=== PATIENT | male | born 1935 | race Caucasian/White ===

== ENCOUNTER 2019-01-27 17:03 | Emergency (ER) | payer MEDICARE, BC, MEDICAID ==
[2019-01-27 17:51] VITALS: BP 134/66; PULSE 76
[2019-01-27] MEDS ORDERED: Sodium Chloride 0.9% 10 ML Syringe FLUSH PRN (18:11)
--- NOTE | 2019-01-27 18:28 | EDM.PDOC ---
ED HPI GENERAL MEDICAL PROBLEM - General Chief Complaint: Lower Extremity Injury/Pain Time Seen by Provider: 01/27/19 17:05 Source of Information: Reports: Patient History Limitations: Reports: No Limitations - History of Present Illness INITIAL COMMENTS - FREE TEXT/NARRATIVE: Pt. fell yesterday at [facility]. Pt. has a history of severe Parkinson's disease and is in a wheelchair all the time according to caregivers at [facility]. Pt. has a history of previous L hip fracture post fall in 2012. Pt. is non-verbal for the most part, able to indicate to the affirmative that his R hip is causing him discomfort. Pt. indicated to the negative that he had no other symptoms. Pt. was initially seen at [facility] and the plain film radiographs did not show any obvious fracture, so the patient was sent to the ER for further eval and pelvic CT. There was no obvious head or neck trauma. No shortening or rotation noted to R lower extremity. Onset Date: 01/27/19 Location: Reports: Lower Extremity, Right - Related Data Allergies Allergy/AdvReac Type Severity Reaction Status Date / Time No Known Drug Allergies Allergy Other Verified 01/27/19 17:39 Home Meds: Home Meds Acetaminophen 1 tab PO Q4HR PRN 05/05/14 [History] Carbidopa/Levodopa [Sinemet Cr 25-100 Tablet] 1 tab PO ASDIRECTED 05/05/14 [ History] Docusate Sodium [Colace] 100 mg PO BID 05/05/14 [History] Donepezil HCl [Aricept] 20 mg PO DAILY 05/05/14 [History] Entacapone [Comtan] 200 mg PO ASDIRECTED 05/05/14 [History] Multivitamin [Multivitamins] 1 tab PO DAILY 05/05/14 [History] Polyethylene Glycol 3350 [MiraLAX] 17 gm PO BEDTIME 05/05/14 [History] Venlafaxine [Effexor XR] 112.5 mg PO DAILY 05/05/14 [History] Cholecalciferol (Vitamin D3) [Vitamin D3] 1,000 unit PO DAILY 05/30/16 [History] Gabapentin [Neurontin] 300 mg PO BEDTIME 05/30/16 [History] Lisinopril [Prinivil] 5 mg PO DAILY 05/30/16 [History] Memantine HCl [Namenda] 10 mg PO BID 05/30/16 [History] Insulin Glargine,Hum.Rec.Anlog [Basaglar Kwikpen U-100] 10 unit SQ DAILY [History] Ranitidine [Zantac] 150 mg PO DAILY 01/27/19 [History] Past Medical History Cardiovascular History: Reports: Hypertension Gastrointestinal History: Reports: PUD Neurological History: Reports: Parkinson's Other Neuro History: lewy body dementia Psychiatric History: Reports: Anxiety, Dementia, Depression Endocrine/Metabolic History: Reports: Diabetes, Type II Hematologic History: Reports: Anemia, Iron Deficiency - Past Surgical History Musculoskeletal Surgical History: Reports: Hip Replacement Social & Family History - Family History Family Medical History: Noncontributory - Tobacco Use Smoking Status *Q: Unknown Ever Smoked - Living Situation & Occupation Living situation: Reports: Extended Care Facility Occupation: Retired Review of Systems - Review of Systems Review Of Systems: See Below Constitutional: Reports: No Symptoms Eyes: Reports: No Symptoms Ears: Reports: No Symptoms Nose: Reports: No Symptoms Mouth/Throat: Reports: No Symptoms Respiratory: Reports: No Symptoms Cardiovascular: Reports: No Symptoms GI/Abdominal: Reports: No Symptoms Genitourinary: Reports: No Symptoms Musculoskeletal: Reports: Joint Pain Skin: Reports: No Symptoms Neurological: Reports: No Symptoms Psychiatric: Reports: No Symptoms ED EXAM, GENERAL - Physical Exam Exam: See Below Exam Limited By: No Limitations General Appearance: Alert, WD/WN, Mild Distress Head: Atraumatic, Normocephalic Respiratory/Chest: No Respiratory Distress, Lungs Clear, Normal Breath Sounds, No Accessory Muscle Use Cardiovascular: Normal Peripheral Pulses, Regular Rate, Rhythm, No Edema Peripheral Pulses: 3+: Posterior Tibial (L), Posterior Tibial (R) GI/Abdominal: Normal Bowel Sounds, Soft, Non-Tender, No Organomegaly, No Distention, No Mass (Male) Exam: Deferred Rectal (Males) Exam: Deferred Back Exam: Normal Inspection, Full Range of Motion Extremities: Normal Inspection, Normal Range of Motion Neurological: Other (appears alert, able to shake head yes and no, is non- verbal for us which is a chronic problem according to [facility] staff.) Skin Exam: Warm, Dry, Intact, Normal Color Course - Vital Signs Last Recorded V/S: Last Vital Signs Temp 37.0 C 01/27/19 17:05 Pulse 76 01/27/19 17:05 Resp 18 01/27/19 17:05 BP 134/66 01/27/19 17:05 Pulse Ox 92 L 01/27/19 17:05 - Orders/Labs/Meds Orders: Active Orders 24 hr Category Date Time Status Pelvis wo Cont [CT] Stat Exams 01/27/19 17:15 Taken Sodium Chloride 0.9% [Saline Flush] Med 01/27/19 18:11 Active 10 ml FLUSH ASDIRECTED PRN Peripheral IV Insertion Adult [OM.PC] Routine Oth 01/27/19 18:12 Ordered Medication Orders Sodium Chloride (Saline Flush) 10 ml FLUSH ASDIRECTED PRN PRN Reason: Keep Vein Open Labs: Laboratory Tests 01/27/19 01/27/19 01/27/19 Range/Units 18:20 18:20 18:20 WBC 8.1 (4.0-10.0) x10^3/uL RBC 4.25 L (4.5-6.0) x10^6/uL Hgb 12.6 L D (14.0-18.0) g/dL Hct 36.9 L (40.0-52.0) % MCV 86.8 (78.0-93.0) fL MCH 29.6 (26.0-32.0) pg MCHC 34.1 (32.0-36.0) g/dL RDW Coeff of Cammie 13.7 (10.0-15.0) % Plt Count 156 D (130-400) x10^3/uL Neut % (Auto) 76.2 (50.0-80.0) % Lymph % (Auto) 11.1 L (25.0-50.0) % [place] % (Auto) 8.2 (2.0-11.0) % Eos % (Auto) 4.3 H (0.0-4.0) % Baso % (Auto) 0.2 (0.2-1.2) % PT 10.4 (10.0-12.8) SEC INR 0.9 L (2.0-3.5) Sodium 140 (136-145) mmol/L Potassium 4.6 (3.5-5.1) mmol/L Chloride 103 (98-107) mmol/L Carbon Dioxide 30 (21-32) mmol/L Anion Gap 11.6 (10-20) mmol/L BUN 32 H (7-18) mg/dL Creatinine 1.0 (0.70-1.30) mg/dL Est Cr Clr Drug Dosing TNP Estimated GFR (MDRD) > 60 Glucose 126 H (74-106) mg/dL Calcium 8.8 (8.5-10.1) mg/dL Corrected Calcium 9.36 (8.5-10.1) mg/dL Phosphorus 2.9 (2.6-4.7) mg/dL Magnesium 1.8 (1.8-2.4) mg/dL Total Bilirubin 0.4 (0.2-1.0) mg/dL AST 21 (15-37) U/L ALT 13 L (16-63) U/L Alkaline Phosphatase 66 (46-116) U/L Total Protein 6.5 (6.4-8.2) g/dL Albumin 3.3 L (3.4-5.0) g/dL Globulin 3.2 Albumin/Globulin Ratio 1.03 Meds: Medications Generic Name Dose Route Start Last Admin Trade Name Freq PRN Reason Stop Dose Admin Sodium Chloride 10 ml 01/27/19 18:11 Saline Flush FLUSH ASDIRECTED PRN Keep Vein Open Discontinued Medications Generic Name Dose Route Start Last Admin Trade Name Freq PRN Reason Stop Dose Admin Morphine Sulfate 4 mg 01/27/19 19:07 01/27/19 19:16 Morphine IVPUSH 01/27/19 19:08 4 mg ONETIME ONE Administration Ondansetron HCl 4 mg 01/27/19 19:07 01/27/19 19:18 Zofran IVPUSH 01/27/19 19:08 4 mg ONETIME ONE Administration - Radiology Interpretation Free Text/Narrative:: CT pelvis reveals non-displaced subcapital fracture of R femoral neck. Departure - Departure Time of Disposition: 19:22 Disposition: DC/Tfer to [facility] Clinical Impression: Subcapital fracture of right femur - Discharge Information Instructions: Hip Fracture Referrals: Drake Goldman MD [Primary Care Provider] - Forms: ED Department Discharge Additional Instructions: [place] [facility]ist Dr. Pruitt was contacted. Family was consulted. Pt. will not be undergoing transfer or surgery at the time. Non-weight bearing. [place] 5/325mg 1 tab every 4-6 hours as needed for pain Repeat xrays in clinic in 10 days. - Problem List Review Problem List Initiated/Reviewed/Updated: Yes - My Orders Last 24 Hours: My Active Orders 01/27/19 17:15 Pelvis wo Cont [CT] Stat 01/27/19 18:11 Sodium Chloride 0.9% [Saline Flush] 10 ml FLUSH ASDIRECTED PRN 01/27/19 18:12 Peripheral IV Insertion Adult [OM.PC] Routine - Assessment/Plan Last 24 Hours: My Active Orders 01/27/19 17:15 Pelvis wo Cont [CT] Stat 01/27/19 18:11 Sodium Chloride 0.9% [Saline Flush] 10 ml FLUSH ASDIRECTED PRN 01/27/19 18:12 Peripheral IV Insertion Adult [OM.PC] Routine Plan: Spoke with Dr. Pruitt, orthopedist at [facility] in [place]. He reviewed the radiographs. He states that it appears to be a quite stable, minimal fracture with no deformity. He advised that the patient would be a great risk of or disability just undergoing the surgery. He advised discussing the injury with family. Family and patient both indicate that they want to forgo further operative treatment. Dr. Pruitt advised he be non-weightbearing. Will start [place] 5/325mg every 4-6 hours as needed for pain. Pt. indicates that there is minimal pain only with movement. Pt. will be transported via EMS back to care center.
[2019-01-27 18:57] LABS: CHLORIDE,CL 103 mmol/L (98-107); SODIUM,NA 140 mmol/L (136-145)
[2019-01-27 18:58] LABS: ANION GAP 11.6 mmol/L (10-20)
[2019-01-27] MEDS ORDERED: Morphine 4 MG/ML Syringe IVPUSH ONE (19:07)
[2019-01-27] MEDS ORDERED: Ondansetron 4 MG/2 ML SDV IVPUSH ONE (19:07)
--- NOTE | 2019-01-28 08:12 | CT ---
[id number] CT/CT Pelvis WO IV EXAM: CT Pelvis WO IV CLINICAL DATA: RIGHT HIP PAIN. COMPARISON STUDY: None. FINDINGS: Cortical irregularity involving the subcapital aspect of the right femoral head suggesting nondisplaced fracture. No significant displacement. No dislocation. No other fractures are identified. Post surgical changes following total left hip arthroplasty. No evidence of hardware failure or loosening. Colonic diverticulosis without evidence of acute diverticulitis. The appendix is visualized and appears normal. No evidence of bowel obstruction. The remaining visualized pelvic organs are unremarkable. IMPRESSION: Suspect nondisplaced subcapital fracture of the right femoral head. No dislocation. No other fractures are definitely identified. Guy Vidales DO 01/28/19 0810 Thank you for allowing us to participate in the care of your patient.
== END 2019-01-27 19:36 ==
LOC: VM.ED 17:03
DX: S72.011A Unspecified intracapsular fracture of right femur, initial encounter for closed fracture (principal); M97.02XA Periprosthetic fracture around internal prosthetic left hip joint, initial encounter; I10 Essential (primary) hypertension; E11.9 Type 2 diabetes mellitus without complications; G20 Parkinson's disease; F02.80 Dementia in other diseases classified elsewhere, unspecified severity, without behavioral disturbance, psychotic disturbance, mood disturbance, and anxiety; F41.9 Anxiety disorder, unspecified; F32.9 Major depressive disorder, single episode, unspecified; Z86.2 Personal history of diseases of the blood and blood-forming organs and certain disorders involving the immune mechanism; W19.XXXA Unspecified fall, initial encounter
CPT/HCPCS: 72192; 73502; 80053; 83735; 84100; 85025; 85610; 96374; 96375; 99284; J2270; J2405

== ENCOUNTER 2020-10-10 10:21 | Inpatient (IN) | payer MEDICARE, BC, MEDICAID ==
--- NOTE | 2020-10-10 10:42 | EDM.PDOC ---
ED HPI GENERAL MEDICAL PROBLEM - General Chief Complaint: Respiratory Problem Stated Complaint: Respiratory Issues Time Seen by Provider: 10/10/20 10:25 Source of Information: Reports: EMS, EMS Notes Reviewed, [facility] Records, RN, RN Notes Reviewed History Limitations: Reports: Altered Mental Status - History of Present Illness INITIAL COMMENTS - FREE TEXT/NARRATIVE: Patient is an 85 year old male who presents to the ER per [facility] with lethargy and "low sats". Upon arrival patient is shaky, this is normal for him. Patient is lethargic and does not open eyes for response. [place] staff told EMS that lethargy began yesterday, they also stated that the patient will open eyes and give some sort of a response, but today is more unresponsive. Upon arrival to the ER patient is unresponsive to verbal. Patient has not had COVID infection, and had his COvid vaccination in July No report from half-way regarding diarrhea, blood in stool, or any other recent illnesses. Onset: Gradual - Related Data Allergies Allergy/AdvReac Type Severity Reaction Status Date / Time No Known Drug Allergies Allergy Other Verified 10/10/20 10:37 Home Meds: Home Meds Acetaminophen 1 tab PO Q4HR PRN 05/05/14 [History] Carbidopa/Levodopa [Sinemet Cr 25-100 Tablet] 1 tab PO ASDIRECTED 05/05/14 [History] Docusate Sodium [Colace] 100 mg PO BID 05/05/14 [History] Donepezil HCl [Aricept] 20 mg PO DAILY 05/05/14 [History] Entacapone [Comtan] 200 mg PO ASDIRECTED 05/05/14 [History] Multivitamin [Multivitamins] 1 tab PO DAILY 05/05/14 [History] Venlafaxine [Effexor XR] 112.5 mg PO DAILY 05/05/14 [History] polyethylene glycoL 3350 [MiraLAX] 17 gm PO BEDTIME 05/05/14 [History] Cholecalciferol (Vitamin D3) [Vitamin D3] 1,000 unit PO DAILY 05/30/16 [History] Gabapentin [Neurontin] 300 mg PO BEDTIME 05/30/16 [History] Lisinopril [Prinivil] 5 mg PO DAILY 05/30/16 [History] Memantine HCl [Namenda] 10 mg PO BID 05/30/16 [History] Insulin Glargine,Hum.Rec.Anlog [Basaglar Nicoleikpen U-100] 10 unit SQ DAILY 01/27/19 [History] Ranitidine [Zantac] 150 mg PO DAILY 01/27/19 [History] Past Medical History Cardiovascular History: Reports: Hypertension Gastrointestinal History: Reports: PUD Neurological History: Reports: Parkinson's Other Neuro History: lewy body dementia Psychiatric History: Reports: Anxiety, Dementia, Depression Endocrine/Metabolic History: Reports: Diabetes, Type II Hematologic History: Reports: Anemia, Iron Deficiency - Past Surgical History Musculoskeletal Surgical History: Reports: Hip Replacement Social & Family History - Family History Family Medical History: No Pertinent Family History - Living Situation & Occupation Living situation: Reports: Extended Care Facility Occupation: Retired ED ROS GENERAL - Review of Systems Review Of Systems: Comprehensive ROS is negative, except as noted in HPI. ED EXAM, GENERAL - Physical Exam Exam: See Below Exam Limited By: Altered Mental Status General Appearance: Lethargic, Obtunded Eye Exam: Bilateral Eye: EOMI, Normal Inspection Ears: Normal External Exam, Hearing Grossly Normal Nose: Normal Inspection Throat/Mouth: Normal Inspection, No Airway Compromise Head: Atraumatic, Normocephalic Neck: Normal Inspection, Supple, Non-Tender, Full Range of Motion Respiratory/Chest: No Accessory Muscle Use, Decreased Breath Sounds (right ), Rhonchi (rll) Cardiovascular: Normal Peripheral Pulses, Regular Rate, Rhythm, No Edema, No Gallop, No JVD, No Murmur, No Rub, Tachycardia Peripheral Pulses: 2+: Radial (L), Radial (R) GI/Abdominal: Normal Bowel Sounds, Soft, Non-Tender (Male) Exam: Deferred Rectal (Males) Exam: Deferred Back Exam: Normal Inspection, Decreased Range of Motion Neurological: Unresponsive Skin Exam: Warm, Dry, Intact, No Rash, Pallor Lymphatic: No Adenopathy Course - Vital Signs Last Recorded V/S: Last Vital Signs Temp 98.3 F 10/10/20 10:59 Pulse 100 10/10/20 10:59 Resp 22 H 10/10/20 10:59 BP 142/87 H 10/10/20 10:59 Pulse Ox 97 10/10/20 10:59 - Orders/Labs/Meds Orders: Active Orders 24 hr Category Date Time Status Admission Diagnosis [ADT] Stat ADT 10/10/20 12:03 Ordered Admission Status [Patient Status] [ADT] Routine ADT 10/10/20 12:03 Ordered CULTURE BLOOD [BC] Stat Lab 10/10/20 10:53 Received CULTURE BLOOD [BC] Stat Lab 10/10/20 11:00 Received Dextrose 5% in Water 1,000 ml Med 10/10/20 11:45 Active IV ASDIRECTED Dextrose 50% in Water Med 10/10/20 11:45 Active 50 ml IV ASDIRECTED PRN Glucagon,Human Recombinant [GlucaGen] Med 10/10/20 11:45 Active 1 mg IM ASDIRECTED PRN Blood Culture x2 Reflex Set [OM.PC] Stat Oth 10/10/20 10:33 Ordered Medication Orders Dextrose/Water (50% Dextrose In Water 50 Ml Syringe) 50 ml IV ASDIRECTED PRN PRN Reason: Hypoglycemia Glucagon (Glucagon,Human Recombinant 1 Mg Vial) 1 mg IM ASDIRECTED PRN PRN Reason: Hypoglycemia Dextrose/Water (Dextrose 5% In Water) 1,000 mls @ 100 mls/hr IV ASDIRECTED GEO Last Admin: 10/10/20 11:59 Dose: 100 mls/hr Documented by: REDD Labs: Laboratory Tests 10/10/20 10/10/20 10/10/20 Range/Units 10:47 10:53 10:53 WBC 12.6 H (4.0-10.0) x10^3/uL RBC 4.79 (4.5-6.0) x10^6/uL Hgb 14.5 D (14.0-18.0) g/dL Hct 43.7 (40.0-52.0) % MCV 91.2 D (78.0-93.0) fL MCH 30.3 (26.0-32.0) pg MCHC 33.2 (32.0-36.0) g/dL RDW Coeff of Cammie 14.9 (10.0-15.0) % Plt Count 198 (130-400) x10^3/uL Add Manual Diff Yes Neutrophils % (Manual) 74 (50-80) % Band Neutrophils % 10 H (0-6) % Lymphocytes % (Manual) 4 L (25-50) % Reactive Lymphs % 4 H (0) % Monocytes % (Manual) 7 (2-11) % Metamyelocytes % 1 H (0) % Platelet Estimate Adequate PT (9.9-12.5) SEC INR (2.0-3.5) Sodium 158 H (136-145) mmol/L Potassium 4.2 (3.5-5.1) mmol/L Chloride 119 H (98-107) mmol/L Carbon Dioxide 28 (21-32) mmol/L Anion Gap 15.2 H (5-15) mmol/L BUN 69 H D (7-18) mg/dL Creatinine 1.8 H (0.70-1.30) mg/dL Est Cr Clr Drug Dosing TNP Estimated GFR (MDRD) 36 Glucose 271 H (74-106) mg/dL Lactic Acid (0.4-2.0) mmol/L Calcium 9.3 (8.5-10.1) mg/dL Corrected Calcium 9.78 (8.5-10.1) mg/dL Magnesium 2.6 H (1.8-2.4) mg/dL Total Bilirubin 1.0 (0.2-1.0) mg/dL AST 13 L (15-37) U/L ALT 9 L (16-63) U/L Alkaline Phosphatase 60 (46-116) U/L Troponin I High Sens 17 (<=76) ng/L C-Reactive Protein 24.4 H (<=0.9) mg/dL Total Protein 7.2 (6.4-8.2) g/dL Albumin 3.4 (3.4-5.0) g/dL Globulin 3.8 Albumin/Globulin Ratio 0.89 Influenza Type A RNA Negative (NEGATIVE) Influenza Type B RNA Negative (NEGATIVE) SARS-CoV-2 RNA (DARIO) Negative (NEGATIVE) 10/10/20 10/10/20 Range/Units 10:53 10:53 WBC (4.0-10.0) x10^3/uL RBC (4.5-6.0) x10^6/uL Hgb (14.0-18.0) g/dL Hct (40.0-52.0) % MCV (78.0-93.0) fL MCH (26.0-32.0) pg MCHC (32.0-36.0) g/dL RDW Coeff of Cammie (10.0-15.0) % Plt Count (130-400) x10^3/uL Add Manual Diff Neutrophils % (Manual) (50-80) % Band Neutrophils % (0-6) % Lymphocytes % (Manual) (25-50) % Reactive Lymphs % (0) % Monocytes % (Manual) (2-11) % Metamyelocytes % (0) % Platelet Estimate PT 11.9 (9.9-12.5) SEC INR 1.1 L (2.0-3.5) Sodium (136-145) mmol/L Potassium (3.5-5.1) mmol/L Chloride (98-107) mmol/L Carbon Dioxide (21-32) mmol/L Anion Gap (5-15) mmol/L BUN (7-18) mg/dL Creatinine (0.70-1.30) mg/dL Est Cr Clr Drug Dosing Estimated GFR (MDRD) Glucose (74-106) mg/dL Lactic Acid 2.0 (0.4-2.0) mmol/L Calcium (8.5-10.1) mg/dL Corrected Calcium (8.5-10.1) mg/dL Magnesium (1.8-2.4) mg/dL Total Bilirubin (0.2-1.0) mg/dL AST (15-37) U/L ALT (16-63) U/L Alkaline Phosphatase (46-116) U/L Troponin I High Sens (<=76) ng/L C-Reactive Protein (<=0.9) mg/dL Total Protein (6.4-8.2) g/dL Albumin (3.4-5.0) g/dL Globulin Albumin/Globulin Ratio Influenza Type A RNA (NEGATIVE) Influenza Type B RNA (NEGATIVE) SARS-CoV-2 RNA (DARIO) (NEGATIVE) Meds: Medications Generic Name Dose Route Start Last Admin Trade Name Freq PRN Reason Stop Dose Admin Dextrose/Water 50 ml 10/10/20 11:45 50% Dextrose In Water 50 Ml Syringe IV ASDIRECTED PRN Hypoglycemia Glucagon 1 mg 10/10/20 11:45 Glucagon,Human Recombinant 1 Mg Vial IM ASDIRECTED PRN Hypoglycemia Dextrose/Water 1,000 mls @ 100 mls/hr 10/10/20 11:45 10/10/20 11:59 Dextrose 5% In Water IV 100 mls/hr ASDIRECTED GEO Administration Discontinued Medications Generic Name Dose Route Start Last Admin Trade Name Freq PRN Reason Stop Dose Admin Insulin Human Regular 10 unit 10/10/20 11:45 10/10/20 12:00 Insulin Regular, Human 100 Units/Ml 3 Ml Vial IVPUSH 10/10/20 11:46 10 units ONETIME ONE Administration - Radiology Interpretation Free Text/Narrative:: Chest xray: No acute findings See rad report - Re-Assessments/Exams Free Text/Narrative Re-Assessment/Exam: 10/10/20 12:05 Discussed patient case with Sarthak Hair NP who agreed to accept the patient for inpatient admission. Departure - Departure Time of Disposition: 12:06 Disposition: Admitted As Inpatient 66 Condition: Fair Clinical Impression: Hypernatremia, Hyperglycemia - Discharge Information *PRESCRIPTION DRUG MONITORING PROGRAM REVIEWED*: No *COPY OF PRESCRIPTION DRUG MONITORING REPORT IN PATIENT YENNI: No Referrals: Kristina Meeks DO [Primary Care Provider] - Forms: ED Department Discharge Sepsis Event Note (ED) - Focused Exam Vital Signs: Vital Signs Temp Pulse Resp BP Pulse Ox 10/10/20 10:59 98.3 F 100 22 H 142/87 H 97 - My Orders Last 24 Hours: My Active Orders 10/10/20 10:33 Blood Culture x2 Reflex Set [OM.PC] Stat 10/10/20 10:53 CULTURE BLOOD [BC] Stat 10/10/20 11:00 CULTURE BLOOD [BC] Stat 10/10/20 11:45 Dextrose 5% in Water 1,000 ml IV ASDIRECTED Dextrose 50% in Water 50 ml IV ASDIRECTED PRN Glucagon,Human Recombinant [GlucaGen] 1 mg IM ASDIRECTED PRN 10/10/20 12:03 Admission Diagnosis [ADT] Stat Admission Status [Patient Status] [ADT] Routine - Assessment/Plan Last 24 Hours: My Active Orders 10/10/20 10:33 Blood Culture x2 Reflex Set [OM.PC] Stat 10/10/20 10:53 CULTURE BLOOD [BC] Stat 10/10/20 11:00 CULTURE BLOOD [BC] Stat 10/10/20 11:45 Dextrose 5% in Water 1,000 ml IV ASDIRECTED Dextrose 50% in Water 50 ml IV ASDIRECTED PRN Glucagon,Human Recombinant [GlucaGen] 1 mg IM ASDIRECTED PRN 10/10/20 12:03 Admission Diagnosis [ADT] Stat Admission Status [Patient Status] [ADT] Routine
--- NOTE | 2020-10-10 11:27 | CR ---
[id number] RAD/RAD Chest PA or AP 1V EXAM: RAD Chest PA or AP 1V INDICATION: CHEST PAIN. COMPARISON: None. DISCUSSION: Cardiomediastinal silhouette is normal in size and contour. No infiltrate, effusion, pneumothorax, or edema. IMPRESSION: No acute cardiopulmonary abnormality. Guy Vidales DO 10/10/20 1126 Thank you for allowing us to participate in the care of your patient.
[2020-10-10 11:32] LABS: CHLORIDE,CL 119 mmol/L (98-107); SODIUM,NA 158 mmol/L (136-145)
[2020-10-10 11:40] LABS: ANION GAP 15.2 mmol/L (5-15)
[2020-10-10] MEDS ORDERED: Insulin Regular, Human 100 Units/ML 3 ML Vial IVPUSH ONE (11:45)
[2020-10-10] MEDS ORDERED: 50% Dextrose in Water 50 ML Syringe IV PRN (11:45)
[2020-10-10] MEDS ORDERED: Glucagon,Human Recombinant 1 MG Vial IM PRN (11:45)
[2020-10-10 11:49] LABS: CORONAVIRUS COVID-19 NAA NEGATIVE (NEGATIVE)
[2020-10-10] MEDS: Dextrose 5% in Water 1,000 ML IV SCH ×2 (11:59→23:16)
[2020-10-10] MEDS ORDERED: Bisacodyl 5 MG Tab PO PRN (14:16)
[2020-10-10] MEDS ORDERED: Bisacodyl 10 MG Supp RECTAL PRN (14:16)
[2020-10-10] MEDS ORDERED: Acetaminophen 325 MG Tab PO PRN (14:16)
[2020-10-10] MEDS ORDERED: Carbidopa/Levodopa 25-100 MG Tab.ER PO SCH (14:30)
[2020-10-10] MEDS: Insulin Regular, Human 100 Units/ML 3 ML Vial SUBCUT SCH ×2 (14:41→18:05)
--- NOTE | 2020-10-10 15:13 | HP ---
CHIEF COMPLAINT: Lethargy. HISTORY OF PRESENT ILLNESS: 85-year-old male patient from the local longterm with a past medical history of type 2 diabetes, hypertension, depression, Parkinson disease, dementia, RLS, anxiety who was seen and examined in the emergency room at [facility] today. According to longterm staff, the patient had increasing lethargy more than usual. The patient's oxygen saturations were at 84% when he was lying down. They applied oxygen which increased it to 91%. The patient did have a temp of 99.0. He was given Tylenol at 9:30 this morning. The patient had an increased respiratory rate up to 28. He was somewhat tachy in the 100s. On-call provider was notified and suggested the patient be seen in the local emergency room. Workup in the emergency room did show increased lethargy. The patient did have a sodium level of 158, BUN is 69, creatinine 1.8, glucose 271,C-reactive protein 24.4, and leukocytosis with a WBC count of 12.6 with 10% bands. The patient was started on D5W in the emergency room and given 10 units of insulin. PAST MEDICAL HISTORY: 1. Parkinson disease. 2. Type 2 diabetes, currently off insulin. 3. Essential hypertension. 4. Parkinson disease. 5. Generalized anxiety disorder. 6. Restless legs syndrome. 7. Dementia with behavioral disturbances. SURGICAL HISTORY: 1. Lumbar laminectomy. 2. Total left hip replacement. FAMILY HISTORY: Noncontributory. SOCIAL HISTORY: The patient is a current resident at the [facility]. The patient does not smoke cigarettes. The patient does not drink alcohol. REVIEW OF SYSTEMS: Unable to obtain due to the patient's lethargy and dementia. PHYSICAL EXAMINATION: Vital Signs: Temperature 98.2, pulse 99, blood pressure 133/61, respiratory rate 26, oxygen saturation 94% on 2 L. Height 5 feet 4 inches, weight 125 pounds. Skin: Intact, warm, and dry. Respiratory: Noted tachypnea, lung sounds are decreased but clear throughout. Cardiovascular: Regular rate and rhythm, no murmur. Abdomen: Concaved, bowel sounds are hypoactive x4, soft. Extremities: No edema. Neurological: The patient is significantly lethargic, does open eyes to sternal chest scrubbing, essential tremor noted. General: The patient does not appear to be in any acute distress. LABORATORY STUDIES: 1. CBC: White blood cell count 12.6, hemoglobin 14.5, hematocrit 43.7, platelets 198,000, 10% bands. 2. PT 11.9, INR 1.1. 3. CMP: Sodium 158, potassium 4.2, chloride 119, CO2 of 28, anion gap 15.2, BUN 69, creatinine 1.8, GFR 36, glucose 271, calcium 9.3, total bilirubin 1.0, AST 13, ALT 9, alkaline phosphatase 60, total protein 7.2, albumin 3.4. 4. Lactic acid 2.0. 5. Magnesium 2.6. 6. Troponin 17. 7. C-reactive protein 24.4. 8. Influenza negative. 9. COVID-19 negative. IMAGING STUDIES: Chest x-ray: No acute cardiopulmonary abnormality. ASSESSMENT: 1. Hypernatremia. 2. Acute kidney injury. 3. Leukocytosis with bandemia. 4. Type 2 diabetes without long-term use of insulin. 5. Parkinson disease. 6. 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 Major depressive disorder, in remission. 8. Essential hypertension. 9. Restless legs syndrome. PLAN: 85-year-old male patient who was admitted to the acute care floor at [facility] for the above diagnosis. The patient will be started on D5W to help drive down his hypernatremia. We will treat acute kidney injury with IV fluids. Oxygen to keep saturations greater than 90%. Unknown etiology of the leukocytosis with bandemia, therefore we will obtain a CT scan of the chest, abdomen, and pelvis. We will also obtain CT scan of the head for worsening lethargy and altered mental status. We will recheck BMP at 1700 today. We will also check serum and urine osmolalities. Continue longterm medications the same without any changes except we will hold the multivitamin and lorazepam. Recheck laboratory work tomorrow morning. The patient is a code 2. The family does not wish to transfer the patient to higher level of care. We will continue to monitor closely. TB: 10/10/2020 14:37:28 MODL: 10/10/2020 15:04:08 /[id number]
[2020-10-10] MEDS: Megestrol 40 MG Tab PO SCH ×2 (16:28→20:39)
--- NOTE | 2020-10-10 16:45 | CT ---
[id number] CT/CT Head WO IV EXAM: CT Head WO IV CLINICAL DATA: AMS,LETHARGY,HYPERNATREMIA. COMPARISON STUDY: None FINDINGS: No intracranial hemorrhage, extra-axial fluid collection, mass, or acute ischemia. Generalized parenchymal atrophy with scattered areas of nonspecific white matter disease, commonly seen as sequela of chronic microvascular ischemia. Soft tissues are unremarkable. Paranasal sinuses and mastoid air cells are clear. IMPRESSION: No acute intracranial findings. Guy Vidales DO 10/10/20 1303 Thank you for allowing us to participate in the care of your patient.
--- NOTE | 2020-10-10 17:05 | CT ---
[id number] CT/CT Chest Abdomen Pelvis WO IV EXAM: CT Chest Abdomen Pelvis WO IV CLINICAL DATA: LEUKOCYTOSIS,FEVER,LETHARY,RAIN. COMPARISON STUDY: None. FINDINGS: Consolidation involving the dependent portion of the lungs bilaterally most pronounced within the lower lobes. No pleural effusion, pneumothorax, or pulmonary contusion. No pneumomediastinum. No pericardial effusion. No lymphadenopathy. Abdomen and pelvis: The liver, gallbladder, spleen, pancreas, adrenal glands are unremarkable. Bilateral renal cysts. Nonobstructing punctate right renal calculus. No evidence of bowel injury, obstruction, or inflammation. Large amount of retained stool within the colon. This is most pronounced within the rectum. Colonic diverticulosis without evidence of acute diverticulitis. Aldana catheter in place. No lymphadenopathy, free fluid, or pneumoperitoneum. Bones and soft tissues: No fracture, compression deformity, or osseous lesion. IMPRESSION: 1. Consolidation of the dependent portion of the lungs bilaterally most pronounced within the lower lobes. Findings are likely infectious/inflammatory in nature as can be with aspiration. 2. Large amount of retained stool within the colon especially within the rectum. Findings are concerning for fecal impaction. Guy Vidales DO 10/10/20 [id number] Thank you for allowing us to participate in the care of your patient.
[2020-10-10] MEDS: ENTACAPONE 200 MG PO SCH ×2 (17:38→19:57)
[2020-10-10] MEDS: Carbidopa/Levodopa 25-100 MG Tab PO SCH ×2 (17:38→20:02)
[2020-10-10] MEDS ORDERED: Piperacillin/Tazobactam 4.5 GM in Sodium Chloride 0.9% 100 ML IV ONE (18:30)
[2020-10-10] MEDS: Docusate Sodium 100 MG Cap PO SCH (19:56)
[2020-10-10] MEDS: Memantine 10 MG Tab PO SCH (19:58)
[2020-10-10] MEDS: Gabapentin 300 MG Cap PO SCH (19:59)
[2020-10-11] MEDS: ENTACAPONE 200 MG PO SCH ×7 (00:01→20:40)
[2020-10-11] MEDS: Carbidopa/Levodopa 25-100 MG Tab PO SCH ×7 (00:02→20:04)
[2020-10-11] MEDS: Piperacillin/Tazobactam 3.375 GM in Sodium Chloride 0.9% 100 ML IV SCH ×3 (01:57→17:38)
[2020-10-11 07:14] LABS: ANION GAP 12.7 mmol/L (5-15)
[2020-10-11] MEDS: Insulin Regular, Human 100 Units/ML 3 ML Vial SUBCUT SCH ×2 (08:13→11:35)
[2020-10-11] MEDS: lamoTRIgine 100 MG Tab PO SCH (08:17)
[2020-10-11] MEDS: Venlafaxine 150 MG Cap.ER PO SCH (08:18)
[2020-10-11] MEDS: Memantine 10 MG Tab PO SCH ×2 (08:18→20:04)
[2020-10-11] MEDS: Donepezil 10 MG Tab PO SCH (08:18)
[2020-10-11] MEDS: Docusate Sodium 100 MG Cap PO SCH ×2 (08:18→20:04)
[2020-10-11] MEDS: Megestrol 40 MG Tab PO SCH (08:20)
[2020-10-11] MEDS ORDERED: Bisacodyl 10 MG Supp RECTAL ONE (09:09)
[2020-10-11] MEDS: Sodium Chloride 0.45% 1,000 ML IV SCH ×2 (09:12→09:33)
--- NOTE | 2020-10-11 14:30 | PN ---
Progress Note for GIOVANNI BRICENO Date: 10/11/2020 Room #: VM.217 SUBJECTIVE: This is hospital day #2 for an 85-year-old admitted with lethargy, hypoxia, fever, and found to have pneumonia. Yesterday, his temp at the [facility] was 100.6. He sort of had been having spells of being out of it, but it had been lasting longer over the day before admission with poor oral intake. He has known Parkinson's and has some trouble swallowing when he is more lethargic. He has also lost 30 pounds since last year and Neurology had recently started him on Megace, but it was not helping and they had even recommended hospice due to his longstanding Parkinson's. The patient's sodium was also found to be up when it was normal on labs performed earlier this winter. The patient has now been afebrile since admission. He is just trying to take his pills with nursing. He is just responsive only to loud verbal stimuli and pain. He is not opening his eyes. He does not appear to be in any pain or distress. OBJECTIVE: VITAL SIGNS: Temperature 97.1, pulse 77, blood pressure 135/90, respiratory rate 24, O2 of 94% on 2 L. GENERAL: He is in no acute distress. HEART: Regular rate and rhythm. S1, S2 without murmur. LUNGS: Lung sounds are decreased with poor air entry. Poor respiratory effort. ABDOMEN: Nondistended. Positive bowel sounds. Soft, nontender. EXTREMITIES: Warm and dry. No edema. Overall, he is cachectic in appearance, but he is not pale. MENTAL STATUS: He is sleeping but responsive again to pain and verbal stimuli. LABORATORY DATA: Lab work does show his white count same as yesterday 12.6, hemoglobin 13.5, platelets 164. Sodium 154, potassium 3.7, chloride 118, bicarb 27, BUN 63, creatinine 1.7, glucose 193, magnesium 2.4, calcium 8.9. ASSESSMENT: 1. Pneumonia likely aspiration. The patient will continue acute cares with IV Zosyn. He is also on comfort status as discussed with his daughter. He will likely be returning to the [facility] in the next couple of days on hospice given his overall decline in the last several months. He did have COVID last fall. 2. Diabetes. The patient's insulin had been discontinued. He had not had any blood sugar issues until this infection. We will discontinue his D5 and monitor blood sugars. I will restart long-acting insulin if needed. He did get some sliding scale this morning, but I will go ahead and discontinue that as I do feel once he is off the D5 he will no longer need it. 3. Parkinson's, advanced. The patient will continue his home medications and get a swallowing eval today. 4. Acute renal failure, likely due to volume depletion. We will put him on some half-normal saline. 5. Hypernatremia, likely due to poor oral intake. I calculated him needing at least 175 mL of half-normal saline and we will repeat a sodium tomorrow and family is not interested in any NG or G-tube placement. 6. 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 7. History of depression, in remission. 8. Essential hypertension. He is not having any current blood pressure issues. 9. Restless legs syndrome. PLAN: At this point, the patient will continue on acute cares with the IV Zosyn. We will switch him over to half-normal saline and repeat lab work tomorrow. At this point given the goals of care or comfort, I will not get Speech involved and allow the patient to the eat and drink as able for comfort. We will continue oxygen. He also has quite a bit of stool on his CT scans. I will start him on some senna and give him a suppository. DVT prophylaxis not indicated due to comfort care status. I discussed the care with his daughter, also Violeta. She is going to talk to the rest of the family. Encouraged them to come to visit him as well. We will also discontinue Megace. MKA: 10/11/2020 13:23:54 MODL: 10/11/2020 14:22:01 /[id number]
[2020-10-11] MEDS: Gabapentin 300 MG Cap PO SCH (20:04)
[2020-10-12] MEDS: ENTACAPONE 200 MG PO SCH ×7 (00:19→19:48)
[2020-10-12] MEDS: Carbidopa/Levodopa 25-100 MG Tab PO SCH ×7 (00:19→19:49)
[2020-10-12] MEDS: Piperacillin/Tazobactam 3.375 GM in Sodium Chloride 0.9% 100 ML IV SCH ×2 (01:55→09:37)
[2020-10-12] MEDS ORDERED: Omeprazole 20 MG Cap.CR PO SCH (07:00)
[2020-10-12 07:26] LABS: ANION GAP 16.6 mmol/L (5-15)
[2020-10-12] MEDS: Memantine 10 MG Tab PO SCH ×2 (08:06→19:48)
[2020-10-12] MEDS: Donepezil 10 MG Tab PO SCH (08:06)
[2020-10-12] MEDS: Docusate Sodium 100 MG Cap PO SCH ×2 (08:06→19:48)
[2020-10-12] MEDS: Venlafaxine 150 MG Cap.ER PO SCH (08:06)
[2020-10-12] MEDS: lamoTRIgine 100 MG Tab PO SCH (08:06)
[2020-10-12] MEDS ORDERED: Flumazenil 0.1 MG/ML 5 ML MDV IVPUSH PRN (08:41)
[2020-10-12] MEDS: LORazepam 2 MG/ML SDV IVPUSH PRN ×2 (09:37→15:24)
[2020-10-12] MEDS ORDERED: Menthol/Zinc Oxide Ointment 3.5 GM Tube TOP PRN (09:53)
[2020-10-12] MEDS ORDERED: Lidocaine 2% Viscous Solution 15 ML Cup PO PRN (09:53)
[2020-10-12] MEDS ORDERED: Atropine 1% Ophth Soln 5 ML BOTTLE SL PRN (09:53)
--- NOTE | 2020-10-12 09:56 | CR ---
[id number] RAD/RAD Chest PA or AP 1V EXAM: RAD Chest PA or AP 1V INDICATION: HYPOXIA. COMPARISON: October 10, 2020. DISCUSSION: Cardiomediastinal silhouette is stable in size and contour. Elevation left hemidiaphragm. No infiltrate, effusion, pneumothorax, or edema. Pulmonary hyperinflation. IMPRESSION: No acute cardiopulmonary abnormality. Guy Vidales DO 10/12/20 0955 Thank you for allowing us to participate in the care of your patient.
--- NOTE | 2020-10-12 11:09 | PN ---
Progress Note for GIOVANNI BRICENO Date: 10/12/2020 Room #: VM.217 SUBJECTIVE: This is hospital day #3 on an 85-year-old admitted with pneumonia and hypernatremia. The patient has not been alert enough to take any medications or oral intake. His IV fluids were increased to 175 of half-normal saline and still his sodium is going up. He also was requiring more oxygen, but does not appear to be having secretions or in respiratory distress. He is having quite a bit of tremor due to not being able to take his Parkinson's medications. He has been afebrile. He does not seem to be in any pain. Family was at bedside yesterday evening and I did visit with them. OBJECTIVE: Vital Signs: His temperature is 98.7, pulse 83, blood pressure 134/87, respiratory rate 24, and O2 of 93% on 6 L. General: He is in no acute distress. He is responsive only to painful stimuli. Heart: Regular rate and rhythm. Lungs: Sounds are decreased with poor respiratory effort, but no crackles or wheezes are appreciated. Abdomen: Soft, nondistended, nontender. Extremities: Warm and dry. No edema. He is cachectic. LABORATORY DATA: His lab work did show his white count has improved down to 12.4, hemoglobin 13.2, platelets 168. Sodium 157, potassium 3.6, chloride 121, bicarb 23, BUN 66, creatinine up to 1.9, glucose 161. ASSESSMENT AND PLAN: 1. Bilateral pneumonia, likely aspiration. Discussed with family the goals of care or comfort. We will discontinue antibiotics and put him on comfort measures. 2. Diabetes type 2 with hyperglycemia due to acute illness. Blood sugars improved after stopping D5. No insulin is indicated. 3. Hypernatremia due to poor oral intake. Due to comfort measures, we will stop IV fluids and no further lab raymond will be monitored. 4. Advanced Parkinson disease. We will try to give him some crushed Sinemet and some applesauce today. I will also have Ativan available p.r.n. for tremors. 5. Acute renal failure. He is having some urine output 1 L over the last 24 hours. He is not able to have any oral intake. At this point, discussion is comfort and we will stop monitoring renal function. 6. Underlying dementia with Parkinson's. 7. History of depression. He is unable to take his medications. 8. Essential hypertension. His blood pressures look okay. 9. Restless legs syndrome. PLAN: The patient will continue on acute cares, but switch over to end of life and compassionate cares. His family will be allowed to come in and visit. We will stop IV fluids. Discussion that this could worsen his respiratory status. I have already repeated a chest x-ray today which did not show any pulmonary edema. We will have atropine available as needed for secretions. We will stop antibiotics. We will have IV Ativan available for tremors and IV morphine available for pain. He has not had any bowel movement despite the suppository. He has not had any intake either. We will allow him to eat and drink as able. We will continue the catheter in place for comfort. Goals of care again are comfort, so DVT prophylaxis not indicated. MKA: 10/12/2020 10:35:36 MODL: 10/12/2020 11:02:07 /[id number]
[2020-10-12] MEDS: Sodium Chloride 0.9% 10 ML Syringe FLUSH PRN ×3 (13:47→19:27)
[2020-10-12] MEDS: Morphine 2 MG/ML SYRINGE IV PRN ×5 (13:47→23:29)
[2020-10-12] MEDS: Ondansetron 4 MG/2 ML SDV IVPUSH PRN (16:48)
[2020-10-12] MEDS: Gabapentin 300 MG Cap PO SCH (19:48)
[2020-10-13] MEDS: Carbidopa/Levodopa 25-100 MG Tab PO SCH ×7 (00:17→19:55)
[2020-10-13] MEDS: ENTACAPONE 200 MG PO SCH ×7 (00:17→19:55)
[2020-10-13] MEDS: Morphine 2 MG/ML SYRINGE IV PRN ×4 (02:09→15:28)
[2020-10-13] MEDS: LORazepam 2 MG/ML SDV IVPUSH PRN ×3 (02:38→13:46)
[2020-10-13] MEDS: Donepezil 10 MG Tab PO SCH (08:41)
[2020-10-13] MEDS: lamoTRIgine 100 MG Tab PO SCH (08:41)
[2020-10-13] MEDS: Docusate Sodium 100 MG Cap PO SCH ×2 (08:41→19:54)
[2020-10-13] MEDS: Memantine 10 MG Tab PO SCH ×2 (08:41→19:55)
[2020-10-13] MEDS: Sodium Chloride 0.9% 10 ML Syringe FLUSH PRN ×5 (09:22→17:46)
[2020-10-13] MEDS: Ondansetron 4 MG/2 ML SDV IVPUSH PRN (09:22)
[2020-10-13] MEDS: Morphine 2 MG/ML SYRINGE IVPUSH SCH ×2 (09:45→17:46)
--- NOTE | 2020-10-13 10:27 | PN ---
Progress Note for GIOVANNI BRICENO Date: 10/13/2020 Room #: VM.217 SUBJECTIVE: This is hospital day #4 on an 85-year-old admitted with an aspiration pneumonia, but also COVID infection last fall and failure to thrive with longstanding Parkinson's disease. The patient has had no oral intake since admission. He was not even able to try any of the applesauce with his Sinemet. He gets quite resistant with oral cares. He was started on IV Ativan, which did seem to help his tremor. He has not had any issues with secretions. We had stopped his IV fluids. He is getting IV morphine. He got a total of 6 mg overnight and 10 mg during the day yesterday. This seems to have helped his tachypnea. He does not seem to be in any pain. Antibiotics were also stopped yesterday. He did spike 100.6 temp this morning. He is not coughing. He has had increasing oxygen requirements up to 7 L due to sats down into the 70s. OBJECTIVE: Vital Signs: Currently, his temperature is 100.3, his pulse is 75, blood pressure 113/61, respiratory rate 24, O2 of 85% on 6 L. General: He is in no acute distress. He is unresponsive. He just barely tries to open his eyes to painful stimuli. Heart: Regular rate and rhythm with distant tones. There is no tachycardia. Lungs: His lung sounds show decreased entry in the right base with some rhonchi. Left lung appears to be clear. He has no wheezing. Abdomen: Quite scaphoid, but positive bowel sounds. Nontender. Extremities: Still warm and dry. No edema. Mental Status: He is not alert enough for orientation. LABORATORY DATA: No lab work has been repeated. ASSESSMENT: 1. Bilateral pneumonia, likely aspiration. The patient is off antibiotics and comfort measures are the focus of care. 2. Advanced Parkinson disease. Unable to take oral pills. He seems to be getting some relief of tremor from the intravenous benzodiazepine. 3. Hypernatremia due to poor oral intake. He is on comfort measures. No further lab work will be monitored. 4. Acute hypoxic respiratory failure due to pneumonia. We will keep the oxygen at a steady rate of 4 L for comfort. The goals of care are comfort, not cure. Therefore, we will discontinue titrating up the oxygen. 5. Type 2 diabetes with hyperglycemia due to his acute illness. His blood sugars have been better after getting him off D5. Spot check last night was 180. No further routine checks are planned. 6. Acute renal failure due to volume depletion and dehydration. He has a Aldana in place for comfort. No further lab monitoring is planned. 7. History of depression. 8. Essential hypertension. 9. Restless legs syndrome. PLAN: The patient will continue on comfort cares. He is still under acute care. He will be on scheduled morphine now 2 mg q.8 hours along with p.r.n. We will continue with the IV Ativan as needed. Family has been at the bedside yesterday and was pleased with his cares. I will update them further if needed. No DVT prophylaxis is indicated given his comfort cares. MKA: 10/13/2020 09:22:51 MODL: 10/13/2020 09:48:45 /[id number] MTDAllen
[2020-10-13 17:48] VITALS: BP 103/58; PULSE 103
[2020-10-13] MEDS: Gabapentin 300 MG Cap PO SCH (19:55)
[2020-10-14] MEDS: Carbidopa/Levodopa 25-100 MG Tab PO SCH (00:14)
[2020-10-14] MEDS: ENTACAPONE 200 MG PO SCH (00:14)
[2020-10-14] MEDS: Morphine 2 MG/ML SYRINGE IVPUSH SCH (01:50)
--- NOTE | 2020-10-14 19:27 | DISCH ---
DATE OF : 10/14/2020. PRIMARY CAUSE OF : 1. Bilateral pneumonia, likely aspiration. 2. Advanced Parkinson disease. The patient was on comfort cares. 3. Hypernatremia due to poor oral intake. 4. Acute hypoxic respiratory failure secondary to pneumonia. 5. Severe malnutrition due to poor oral intake from Parkinson's with recent weight loss and COVID-19 which occurred last fall. 6. Type 2 diabetes with hyperglycemia due to his acute illness. 7. Acute renal failure due to acute illness. 8. History of depression. 9. Essential hypertension. 10.Restless legs syndrome. REASON FOR ADMISSION: On the date of admission, this 85-year-old was transferred over from [facility] due to lethargy, hypoxia, and low- grade fevers. He was found to have pneumonia and hypernatremia, and started on IV fluids and antibiotics. However, his mentation did not improve and he continued to be unresponsive other than to pain. Decision was made after visiting with his family to fully convert him over to comfort cares on the . At that time, we did discontinue his IV Zosyn. His oxygen needs were increasing up to 6-7 L. We did decrease it to a stable 4 L for comfort and stopped his IV fluids. The patient was having significant tremor from his Parkinson's. He was unable to take any oral agents. He seemed to respond well to the IV benzodiazepines. We are also using IV morphine for tachypnea. He did not appear to be in any pain and was resting quite comfortably on the medications he was getting, and peacefully with family at the bedside. MKA: 10/14/2020 17:31:20 MODL: 10/14/2020 19:20:18 /[id number] MTDAllen
== END 2020-10-14 03:12 | disposition expired | DRG 871 ==
LOC: VM.ED 10:21 → SUPCPDRO 10:21 → VM.MS 12:13
PROVIDERS: ADMIT Nurse Practitioner Family; ATTEND Internal Medicine
DX: E87.1 Hypo-osmolality and hyponatremia (principal); A41.9 Sepsis, unspecified organism; J69.0 Pneumonitis due to inhalation of food and vomit; J96.01 Acute respiratory failure with hypoxia; F32.9 Major depressive disorder, single episode, unspecified; F41.9 Anxiety disorder, unspecified; F03.90 Unspecified dementia, unspecified severity, without behavioral disturbance, psychotic disturbance, mood disturbance, and anxiety; D50.9 Iron deficiency anemia, unspecified; E43 Unspecified severe protein-calorie malnutrition; J18.9 Pneumonia, unspecified organism; N17.9 Acute kidney failure, unspecified; E87.0 Hyperosmolality and hypernatremia; F02.81 Dementia in other diseases classified elsewhere, unspecified severity, with behavioral disturbance; Z51.5 Encounter for palliative care; Z66 Do not resuscitate; G20 Parkinson's disease; I10 Essential (primary) hypertension; Z20.822 Contact with and (suspected) exposure to COVID-19; F41.1 Generalized anxiety disorder; F32.5 Major depressive disorder, single episode, in full remission; Z96.642 Presence of left artificial hip joint; D64.9 Anemia, unspecified; E61.1 Iron deficiency; E11.65 Type 2 diabetes mellitus with hyperglycemia; G25.81 Restless legs syndrome; E86.9 Volume depletion, unspecified; E86.0 Dehydration; Z86.16 Personal history of COVID-19; Z98.890 Other specified postprocedural states; Z79.4 Long term (current) use of insulin; Z79.899 Other long term (current) drug therapy; Z99.81 Dependence on supplemental oxygen; Z68.21 Body mass index [BMI] 21.0-21.9, adult; Z87.11 Personal history of peptic ulcer disease
CPT/HCPCS: 0240U; 36415; 51702; 70450; 71045; 71250; 74176; 80048; 80053; 81001; 82962; 83605; 83735; 83930; 83935; 84484; 85025; 85610; 86140; 87040; 94760; 99284; 99285-25; A9270-GY; J1815-GY; J2060; J2270; J2405; J2543; J7030; J7060